=== PATIENT | male | born 1935 | race Caucasian/White ===

== ENCOUNTER → 2018-07-30 | Day surgery (SDC) | payer MEDICARE, OTHER ==
[2018-07-28 16:27] LABS: BASOPHILS % 0.2 % (0.0-1.0); EOSINOPHILS # (AUTO) 0.1 (0.0-0.4); EOSINOPHILS % 1.8 % (0.0-6.0); HEMATOCRIT 36.5 % (38.2-49.6); LYMPHOCYTES # (AUTO) 1.4 (1.0-3.2); LYMPHOCYTES % 24.3 % (18.0-39.1); MEAN CORPUSCULAR HEMOGLOBIN 29.5 pg (28-32); MEAN CORPUSCULAR HGB CONC 32.9 g/dL (31-35); MEAN CORPUSCULAR VOLUME 89.7 fL (81-99); MONOCYTES # (AUTO) 0.8 (0.2-0.8); MONOCYTES % 14.1 % (4.4-11.3); NEUTROPHILS # (AUTO) 3.3 (2.1-6.9); NEUTROPHILS % 59.2 % (38.7-80.0); PLATELET COUNT 177 x10e3/uL (140-360); RED BLOOD COUNT 4.07 x10e6/uL (4.3-5.7); RED CELL DISTRIBUTION WIDTH 13.2 % (11.7-14.4)
[2018-07-28 16:38] LABS: INR 0.93
[2018-07-28 16:44] LABS: ANION GAP 16.9 mmol/L (8-16); CALCIUM 10.5 mg/dL (8.4-10.2); CREATININE, SERUM 2.1 mg/dL (0.72-1.25); POTASSIUM 4.9 mmol/L (3.5-5.1)
--- NOTE | 2018-07-28 16:59 | Diagnostic Imaging Report ---
EXAMINATION: PA and lateral views of the chest. COMPARISON: None CLINICAL HISTORY: Preoperative study for urological procedure DISCUSSION: Lines/tubes: None. Lungs: The lungs are well inflated and clear. There is no evidence of pneumonia or pulmonary edema. Pleura: There is no pleural effusion or pneumothorax. Heart and mediastinum: Atherosclerotic calcification of the thoracic aorta. Otherwise normal cardiomediastinal contour. Bones and soft tissues: No acute bony abnormalities. Degenerative changes in the thoracic spine IMPRESSION: No acute cardiopulmonary abnormalities. Signed by: Dr. Mina Elizabeth M.D. on 07/28/2018 4:56 PM
[~2018-07-30] MED LIST: ACETAMINOPHEN 1000 MG/100 ML IV ONE; CEFTRIAXONE SOD 1 GM/NS 50 ML 50 ML IV ONE; COLESTID1 G PO; FENTANYL CITRATE/PF 100MCG/2 ML INJ ONE; GABAPENTIN300 MG PO; GLYCOPYRROLATE INJ 1MG/ 5 ML SYR ONE; IOPAMIDOL 610MG/1ML 300 MG/ML VIAL IV ONE; LEVOXYL175 MCG PO; LIDOCAINE HCL 2% LOCAL INJ 5 ML SDV VIAL INJ ONE; MORPHINE SULFATE INJ 4 MG/ML INJ 1ML ONE; NIFEDIPINE ER30 M1 PO; NORCO 10-325 T1 EACH; ONDANSETRON HCL INJ 2MG/ML 2ML 2 MG/ML VIAL ONE; PRAVASTATIN SOD20 MG PO; PROPOFOL IV EMULSION 10 MG/ML 20 ML VIAL ONE; SEVOFLURANE INHAL SOLN 250 ML PEN BTL ONE; eliquis PO
--- OUTSIDE RECORDS SUMMARY | 2018-07-30 09:08 | XMS REPORT | Clinical Summary ---
Author Author [facility] Organization [facility] Address Unknown Phone Unavailable Care Team Providers Care Neonatal Intensive Care Unit Nurse Name Role Phone Hosea Cai MD PCP Allergies Comments Active Allergy Reactions Severity Noted Date Pt states that he becomes angry and hurts all over Atorvastatin Other (See 09/09/2017 Comments) Medications End Date Status Medication Sig Dispensed Refills Start Date Active atenolol (TENORMIN) 25 MG 0 tablet 6 Active colestipol (COLESTID) 1 Take 2 g by 3 gram tablet mouth once 7 daily. Active ELIQUIS 5 mg tablet 0 7 Active furosemide (LASIX) 40 mg Take 40 mg by 3 tablet mouth once 6 daily. Active gabapentin (NEURONTIN) Take 1,200 mg 0 600 mg tablet by mouth 3 7 (three) times a day. Active HYDROcodone-acetaminophen TAKE 1 TABLET 0 (NORCO) 10-325 mg per BY MOUTH 4 7 tablet TIMES A DAY NEEDED Active hydroCHLOROthiazide Take 25 mg by 3 (HYDRODIURIL) 25 MG mouth once 7 tablet daily. Active levothyroxine (SYNTHROID, 0 LEVOXYL) 150 mcg tablet 7 Active losartan (COZAAR) 100 MG Take 100 mg 3 tablet by mouth once 6 daily. Active NIFEdipine CC (ADALAT CC) 0 30 MG 24 hr tablet 6 Active omeprazole (PriLOSEC) 40 0 MG capsule 7 Active ranitidine (ZANTAC) 150 Take 150 mg 1 MG tablet by mouth once 7 daily. Active tamsulosin (FLOMAX) 0.4 0 mg capsule,extended 7 release 24hr Active cyanocobalamin 1,000 Inject 1,000 0 mcg/mL injection mcg into the shoulder, thigh, or buttocks once. Active coenzyme Q10 (CO Q-10) Take 100 mg 0 100 mg capsule by mouth daily. Active magnesium 200 mg tablet Take by 0 mouth. Active niacin 500 MG tablet Take 500 mg 0 by mouth daily with breakfast. Active pravastatin (PRAVACHOL) Take 20 mg by 0 20 MG tablet mouth nightly. Active fluticasone (FLONASE) 50 inhale 2 0 mcg/actuation nasal spray sprays (100 8 mcg) in each nostril by intranasal route once daily Active levothyroxine (SYNTHROID, TAKE 1 TABLET 0 LEVOXYL) 175 mcg tablet BY MOUTH IN 8 THE MORNING ON AN EMPTY STOMACH ON SATURDAY AND SATURDAY Active moxifloxacin (VIGAMOX) START 2 DAYS 0 0.5 % ophthalmic solution BEFORE 8 SURGERY,1 DROP BY 4 TIMES A DAY FOR 10 DAYS IN SURGERY EYE ONLY Active oxyCODone-acetaminophen Take 1 tablet 0 (PERCOCET) 10-325 mg per by mouth 4 9 tablet (four) times a day. 02/11/2018 Discontinued CALCIUM CARBONATE/VITAMIN Take by 0 D3 (CALCIUM WITH VITAMIN mouth. D ORAL) 02/11/2018 Discontinued eszopiclone (LUNESTA) 3 TAKE 1 TABLET 0 mg tablet IMMEDIATELY 8 BEFORE BEDTIME ONCE A DAY FOR 1 DAY 02/05/2018 Discontinued oxyCODone-acetaminophen Take 1 tablet 0 (PERCOCET) 10-325 mg per by mouth 4 8 tablet (four) times a day. 02/05/2018 Discontinued acetaZOLAMIDE (DIAMOX) TAKE 1CAP BY 0 500 mg capsule ORAL ROUTE 8 EVERY DAY FOR 1 DAY AT 7AM THE DAY AFTER SURGERY. 02/05/2018 Discontinued prednisoLONE acetate INSTILL 1 0 (PRED FORTE) 1 % DROP IN SX 8 ophthalmic suspension EYE 4 X A DAY FOR 1ST WEEK, DECREASE BY 1 DROP EACH WEEK FOR A TOTAL OF 4 WEEKS 02/05/2018 Discontinued keTOROlac (ACULAR) 0.5 % INSTILL ONE 1 ophthalmic solution DROP INTO THE 8 AFFECTED EYE 4 TIMES PER DAY 02/05/2018 Discontinued methylPREDNISolone TAKE 6 0 (MEDROL DOSEPAK) 4 mg TABLETS ON 8 tablet DAY 1 DIRECTED ON PACKAGE AND DECREASE BY 1 TAB EACH DAY FOR A TOTAL OF 6 DAYS 04/17/2018 Discontinued atenolol (TENORMIN) 25 MG 1 tablet. 0 tablet 04/08/2018 diazePAM (VALIUM) 2 MG Take 1 tablet 1 tablet 0 tablet (2 mg total) 9 by mouth every 6 (six) hours as needed for anxiety for up to 1 day. Active Problems Problem Noted Date Nuclear sclerotic cataract of right eye 02/11/2018 Acute pain of left knee 06/15/2016 Resolved Problems Problem Noted Date Resolved Date Nuclear sclerotic cataract of left eye 01/21/2018 02/11/2018 Encounters Care Team Description Date Type Specialty Tomi Jose MD Enlarged prostate with urinary obstruction (Primary Dx) 07/07/2018 Transcribe Access Orders Dl Quiñones MD Lumbar herniated disc 04/17/2018 Hospital Radiology Encounter Grazyna Mcgraw 04/15/2018 Telephone Radiology Dl Quiñones MD Low back pain, unspecified back pain laterality, unspecified chronicity, with sciatica presence unspecified (Primary Dx); Elevated creatine kinase 04/09/2018 Office Visit Orthopedic Surgery Dl Quiñones MD Lumbar herniated disc (Primary Dx) 04/09/2018 Telephone Orthopedic Surgery Dl Quiñones MD Low back pain, unspecified back pain laterality, unspecified chronicity, with sciatica presence unspecified 04/08/2018 Hospital Radiology Encounter Ella Holly MA 04/07/2018 Telephone Orthopedic Surgery Dl Quiñones MD Low back pain, unspecified back pain laterality, unspecified chronicity, with sciatica presence unspecified (Primary Dx) 04/02/2018 Office Visit Orthopedic Surgery Grazyna Martinez MD 02/11/2018 Anesthesia General Surgery Event Aristides Park MD PHACOEMULSIFICATION, CATARACT, WITH IOL IMPLANTATION 02/11/2018 Surgery General Surgery Aristides Park MD Nuclear sclerotic cataract of right eye (Primary Dx) 02/11/2018 Hospital General Surgery Encounter Grazyna Martinez MD 01/21/2018 Anesthesia General Surgery Event Aristides Park MD PHACOEMULSIFICATION, CATARACT, WITH IOL IMPLANTATION 01/21/2018 Surgery General Surgery Aristides Park MD Nuclear sclerotic cataract of left eye (Primary Dx) 01/21/2018 Hospital General Surgery Encounter Daquan Yanez MD Tear of left rotator cuff, unspecified tear extent (Primary Dx) 12/13/2017 Office Visit Orthopedic Surgery Daquan Yanez MD Tear of left rotator cuff, unspecified tear extent (Primary Dx) 11/13/2017 Office Visit Orthopedic Surgery Silver Zepeda MD Chronic left shoulder pain (Primary Dx); Tear of left rotator cuff, unspecified tear extent; Shoulder injury, subsequent encounter; Glenohumeral arthritis, left 09/09/2017 Office Visit Orthopedic Surgery Silver Zepeda MD Tear of left rotator cuff, unspecified tear extent 08/28/2017 Hospital Radiology Encounter Silver Zepeda MD Chronic left shoulder pain (Primary Dx); Tear of left rotator cuff, unspecified tear extent; Shoulder injury, initial encounter 08/26/2017 Office Visit Orthopedic Surgery after 07/29/2017 Immunizations Name Dates Previously Given Next Due Pneumococcal Conjugate 10/09/2016 13-Valent Pneumococcal 10/17/2017 Polysaccharide Family History Relation Name Status Comments Father Mother Social History Date Tobacco Use Types Packs/Day Years Used Quit: 1987 Former Smoker Cigarettes 0.5 20 Smokeless Tobacco: Never Used Tobacco Cessation: Counseling Given: No Comments: quit smoking years ago Alcohol Use Drinks/Week oz/Week Comments No Sex Assigned at Date Recorded Not on file Industry Job Start Date Occupation Not on file Not on file Not on file Travel End Travel History Travel Start No recent travel history available. Last Filed Vital Signs Time Taken Vital Sign Reading 04/17/2018 11:42 AM [employer]ODUCTION STAFF WORKER Blood Pressure 153/67 04/17/2018 11:42 AM PRODUCTION STAFF WORKER Pulse 72 02/11/2018 9:52 AM PRODUCTION STAFF WORKER Temperature 36.1 C (97 F) 04/17/2018 11:42 AM PRODUCTION STAFF WORKER Respiratory Rate 18 04/17/2018 11:42 AM PRODUCTION STAFF WORKER Oxygen Saturation 98% - Inhaled Oxygen - Concentration 04/17/2018 9:08 AM PRODUCTION STAFF WORKER Weight 99.8 kg (220 lb) 04/17/2018 9:08 AM PRODUCTION STAFF WORKER Height 177.8 cm (5' 10") 04/17/2018 9:08 AM PRODUCTION STAFF WORKER Body Mass Index 31.57 Plan of Treatment Health Maintenance Due Date Last Done Comments SHINGLES VACCINES (#1) 1984 INFLUENZA VACCINE 10/16/2018 65+ PNEUMOCOCCAL VACCINE Completed 10/17/2017, 10/09/2016 PNEUMOCOCCAL Completed 10/17/2017 POLYSACCHARIDE VACCINE AGE 65 AND OVER Implants Device Identifier Shelf Expiration Date Model / Serial / Lot Implanted Type Area Manufactur er 07/20/2022 [id number] / [id number] / [id number] 20.5 Diopter, [employer] Toric Intraocula Left: Eye CONRAD Iol, Model [id number], Multifocal, r Lens MEDICAL Style C, Tri-Fix Haptics Offset (IOL) OPTICS From Optic, 1-Piece Lens (FORMERLY Implanted: Qty: 1 on 01/21/2018 by Vivian RODRIGUEZ Asad Syed, MD [employer]) 09/11/2021 [id number] / [id number] / [id number] 22.0 Diopter, [employer] Symfony Toric Intraocula Right: Eye CONRAD Iol, Model [id number], Multifocal, r Lens MEDICAL Style C, Tri-Fix Haptics Offset (IOL) OPTICS From Optic, 1-Piece Lens (FORMERLY Implanted: Qty: 1 on 02/11/2018 by Vivian RODRIGUEZ Asad Syed, MD [employer]) Procedures Comments Procedure Name Priority Date/Time Associated Diagnosis US PROSTATE Routine 07/15/2018 Enlarged prostate with 6:03 PM CDT urinary obstruction IR EPIDURAL STEROID INJ Routine 04/17/2018 Lumbar herniated disc TRANSFORAM LUMBAR LEFT 10:55 AM PRODUCTION STAFF WORKER (NERVE ROOT BLOCK) ESTIMATED GFR Routine 04/17/2018 8:50 AM PRODUCTION STAFF WORKER PARTIAL THROMBOPLASTIN Routine 04/17/2018 TIME (PTT) 8:50 AM PRODUCTION STAFF WORKER PROTHROMBIN TIME WITH INR Routine 04/17/2018 8:50 AM PRODUCTION STAFF WORKER COMPREHENSIVE METABOLIC Routine 04/17/2018 PANEL 8:50 AM PRODUCTION STAFF WORKER HC COMPLETE BLD COUNT Routine 04/17/2018 W/AUTO DIFF 8:50 AM PRODUCTION STAFF WORKER ESTIMATED GFR Routine 04/09/2018 12:27 PM PRODUCTION STAFF WORKER COMPREHENSIVE METABOLIC Routine 04/09/2018 Elevated creatine kinase PANEL 12:27 PM PRODUCTION STAFF WORKER MRI LUMBAR SPINE WO Routine 04/08/2018 Low back pain, CONTRAST 12:29 PM PRODUCTION STAFF WORKER unspecified back pain laterality, unspecified chronicity, with sciatica presence unspecified XR LUMBAR SPINE COMPLETE Routine 04/02/2018 Low back pain, 4+ VW 2:16 PM PRODUCTION STAFF WORKER unspecified back pain laterality, unspecified chronicity, with sciatica presence unspecified PHACOEMULSIFICATION, 02/11/2018 Age-related nuclear CATARACT, WITH IOL 8:30 AM PRODUCTION STAFF WORKER cataract, right IMPLANTATION Special Needs [id number] +22.00IRIS HOOKS PHACOEMULSIFICATION, 01/21/2018 Age-related nuclear CATARACT, WITH IOL 12:35 PM PRODUCTION STAFF WORKER cataract of left eye IMPLANTATION Special Needs [id number] +20.50IRIS HOOKS POC GLUCOSE Routine 01/21/2018 12:32 PM PRODUCTION STAFF WORKER OK ARTHROCENTESIS Routine 12/13/2017 Tear of left rotator ASPIR&/INJ MAJOR JT/BURSA 1:30 PM CDT cuff, unspecified tear W/O US extent OK ARTHROCENTESIS Routine 09/09/2017 Tear of left rotator ASPIR&/INJ MAJOR JT/BURSA 8:45 AM CDT cuff, unspecified tear W/O US extent Glenohumeral arthritis, left MRI SHOULDER WO CONTRAST Routine 08/28/2017 Tear of left rotator LEFT 11:27 AM CDT cuff, unspecified tear extent XR SHOULDER 2+ VW LEFT Routine 08/26/2017 Chronic left shoulder 1:23 PM CDT pain OK ARTHROCENTESIS Routine 08/26/2017 Tear of left rotator ASPIR&/INJ MAJOR JT/BURSA 1:15 PM CDT cuff, unspecified tear W/O US extent after 07/29/2017 Results * US Prostate (07/15/2018 6:03 PM CDT) Narrative Performed At EXAMINATION:US PROSTATE [facility] CLINICAL HISTORY:N40.1 Benign prostatic hyperplasia with lower urinary tract symptoms, N13.8 Other obstructive and reflux uropathy, ENLARGED PROSTATE COMPARISON:None. Multiple transrectal sonographic images of the prostate gland are obtained using real-time ultrasonography. FINDINGS: The prostate gland measures 4.6 x 4.0 x 2.4 cm. cm. The prostate volume is 22.7 cc. The prostate gland is heterogeneous. There is a 1.1 cm cyst present. The seminal vesicles are unremarkable. IMPRESSION: 1. The prostate gland is enlarged. 2. The prostate gland is heterogeneous. 3. There is a 1.1 cm cyst present. Procedure Note Interface, Radiology Results Incoming - 07/15/2018 6:09 PM CDT EXAMINATION: US PROSTATE CLINICAL HISTORY: N40.1 Benign prostatic hyperplasia with lower urinary tract symptoms, N13.8 Other obstructive and reflux uropathy, ENLARGED PROSTATE COMPARISON: None. Multiple transrectal sonographic images of the prostate gland are obtained using real-time ultrasonography. FINDINGS: The prostate gland measures 4.6 x 4.0 x 2.4 cm. cm. The prostate volume is 22.7 cc. The prostate gland is heterogeneous. There is a 1.1 cm cyst present. The seminal vesicles are unremarkable. IMPRESSION: 1. The prostate gland is enlarged. 2. The prostate gland is heterogeneous. 3. There is a 1.1 cm cyst present. 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 Malone. CONSENT: The risks and benefits of the procedure were fully explained to the patient in detail and all the patient's questions were answered. The patient agreed to proceed with the procedure and signed an informed consent. TECHNIQUE: The patient was brought to the angio suite and placed on the fluoroscopy table in prone position. The patient's lumbar region was prepped and draped in standard sterile fashion. Sedation was administered by intravenous injection of adequate amounts of Versed and fentanyl. Continuous monitoring and recording of the patients vital signs was carried out under my supervision during the procedure and subsequently in the recovery room until discharged. Under fluoroscopy, theleft [id number] foramen was localized. The skin over that region was infiltrated with 1% lidocaine. Under real-time fluoroscopic guidance, a 25 gauge spinal needle was advanced percutaneously to theleft [id number] foramen. Then, 2 cc of nonionic contrast agent was slowly injected, which demonstrated radiculogram of theleft S1. Subsequently 3cc of Marcaine 0.75% and 6 milligrams of Celestone was slowly injected into this region with intermittent pause to assess for any adverse effects of injection. The needle was then withdrawn and hemostasis was achieved with adequate pressure. The patient tolerated the procedure well without any immediate complications. TOTAL FLUOROSCOPY TIME: 7 minutes. Total fluoroscopic exposure images was2 images. Total radiation exposure was 68 mGy. Total sedation time was 7minutes. IMPRESSION: Successful uncomplicated fluoroscopic guided transforaminal epidural steroid injection at left S1. [facility]-[id number] Procedure Note Hm Interface, Radiology Results Incoming - 04/17/2018 11:50 AM PRODUCTION STAFF WORKER EXAMINATION: IR EPIDURAL STEROID INJ TRANSFORAM LUMBAR LEFT (NERVE ROOT BLOCK) CLINICAL HISTORY: M51.26 Other intervertebral disc displacement lumbar region, herniated lumbar disc OPERATORS: Dr. Malone. CONSENT: The risks and benefits of the procedure were fully explained to the patient in detail and all the patient's questions were answered. The patient agreed to proceed with the procedure and signed an informed consent. TECHNIQUE: The patient was brought to the angio suite and placed on the fluoroscopy table in prone position. The patient's lumbar region was prepped and draped in standard sterile fashion. Sedation was administered by intravenous injection of adequate amounts of Versed and fentanyl. Continuous monitoring and recording of the patients vital signs was carried out under my supervision during the procedure and subsequently in the recovery room until discharged. Under fluoroscopy, the left S1 neural foramen was localized. The skin over that region was infiltrated with 1% lidocaine. Under real-time fluoroscopic guidance, a 25 gauge spinal needle was advanced percutaneously to the left S1 neural foramen. Then, 2 cc of nonionic contrast agent was slowly injected, which demonstrated radiculogram of the left S1. Subsequently 3cc of Marcaine 0.75% and 6 milligrams of Celestone was slowly injected into this region with intermittent pause to assess for any adverse effects of injection. The needle was then withdrawn and hemostasis was achieved with adequate pressure. The patient tolerated the procedure well without any immediate complications. TOTAL FLUOROSCOPY TIME: 7 minutes. Total fluoroscopic exposure images was2 images. Total radiation exposure was 68 mGy. Total sedation time was 7minutes. IMPRESSION: Successful uncomplicated fluoroscopic guided transforaminal epidural steroid injection at left S1. [facility]-[id number] Performing Organization Address City/[facility] Phone Number [facility] [address] [place] [address] * Estimated GFR (04/17/2018 8:50 AM PRODUCTION STAFF WORKER) Only the most recent of 2 results within the time period is included. Estimated GFR 32 (A) mL/min/1.73 m2 [facility] Comment: [facility] CatergoryUnitsInte rpretation G1 >=90 Normal or high G2 60-89Mildly decreased [id number] Mildly to moderately decreased [id number] Moderately to severely decreased G4 15-29Severely decreased G5 <15Kidney failure The eGFR was calculated using the Chronic Kidney Disease Epidemiology Collaboration (CKD-EPI) equation. Interpretation is based on recommendations of the National Kidney Foundation-Kidney Disease Outcomes Quality Initiative (NKF-KDOQI) published in 2014. Specimen Plasma specimen Performing Organization Address [facility] Phone Number [facility] DEPARTMENT [address] [place] [address] PATHOLOGY AND GENOMIC MEDICINE [facility] [address] [place], [place] [id number] [place] [address] * Partial thromboplastin time, activated (04/17/2018 8:50 AM PRODUCTION STAFF WORKER) PTT 28.8 23.0 - 36.0 sec ARNULFO GREWAL Comment: [facility] PTT therapeutic range for unfractionated heparin is 61.0-112.0 seconds which corresponds to Anti-Xa 0.3-0.7 U/ml. Note:Change in Panic Value The PTT Panic Value is changing from 110 sec. to 100 sec. due to new instrumentation and reagents. Correlation studies have been performed to validate this result. Specimen Blood Performing Organization Address City/[facility]/Zipcode Phone Number [facility] [address] [place] [phone] PATHOLOGY AND [facility] [address] * Prothrombin time with INR (04/17/2018 8:50 AM PRODUCTION STAFF WORKER) Prothrombin time 12.2 11.5 - 14.5 sec [facility] INR 0.93 [facility] Comment: [facility] For patients on anticoagulant therapy, reference ranges below: Indication: INR Value Treatment of Venous Thrombosis, 2.0-3.0 pulmonary emboli, or prophylaxis of a venous thrombosis, or systemic emboli. High dose, high risk patients 3.0-4.5 with mechanical valves. NOTE:INR values over 3.0 are sometimes associated with gastrointestinal hemorrhage, especially values over 4.0. Specimen Blood Performing Organization Address [facility]/Zipcode Phone Number [facility] [address] [place] [address] PATHOLOGY AND [facility] [address] * CBC with platelet and differential (04/17/2018 8:50 AM PRODUCTION STAFF WORKER) WBC 5.4 4.2 - 11.0 k/uL [facility] RBC 4.37 4.04 - 5.86 m/uL [facility] HGB 12.4 (L) 13.0 - 17.3 g/dL [facility] HCT 39.6 34.0 - 45.0 % [facility] MCV 90.6 80.0 - 98.0 fL [facility] MCH 28.4 27.0 - 34.0 pg [facility] MCHC 31.3 (L) 31.5 - 36.5 g/dL [facility] RDW - SD 43.0 37.0 - 51.0 fL [facility] MPV 10.3 7.4 - 10.4 fL [facility] Platelet count 192 150 - 400 k/uL [facility] Nucleated RBC 0.00 /100 WBC [facility] Neutrophils 57.7 36.0 - 66.0 % [facility] Lymphocytes 21.8 (L) 24.0 - 44.0 % [facility] Monocytes 13.8 (H) 0.0 - 6.0 % [facility] Eosinophils 4.9 0.0 - 6.0 % [facility] Basophils 0.7 0.0 - 1.2 % [facility] Immature granulocytes 1.1 (H) 0.0 - 1.0 % [facility] Specimen Blood Performing Organization Address City/State/Zipcode Phone Number [facility] OF [address] [facility] [address] [place] [phone] PATHOLOGY AND GENOMIC MEDICINE [place] [id number] [facility] [address] * Comprehensive metabolic panel (04/17/2018 8:50 AM PRODUCTION STAFF WORKER) Only the most recent of 2 results within the time period is included. Sodium 139 135 - 150 mEq/L [facility] Potassium 4.6 3.5 - 5.0 mEq/L [facility] Chloride 100 98 - 112 mEq/L [facility] CO2 27 24 - 31 mmol/L [facility] Anion gap 12@ANIO 7 - 15 mEq/L [facility] BUN 32 (H) 7 - 18 mg/dL [facility] Creatinine 1.90 (H) 0.70 - 1.20 mg/dL [facility] Glucose 110 (H) 65 - 100 mg/dL [facility] Calcium 9.7 8.8 - 10.2 mg/dL [facility] Protein 7.2 6.3 - 8.3 g/dL [facility] Albumin 3.9 3.5 - 5.0 g/dL [facility] A/G ratio 1.2 0.7 - 3.8 [facility] Alkaline phosphatase 68 0 - 129 U/L [facility] AST 27 10 - 50 U/L [facility] ALT 19 5 - 50 U/L [facility] Total bilirubin 0.3 0.2 - 1.2 mg/dL [facility] Specimen Plasma specimen Performing Organization Address City/State/Zipcode Phone Number [facility] DEPARTMENT OF [address] [place] [address] PATHOLOGY AND GENOMIC MEDICINE [facility] [address] [place], [place] [phone] [place] [address] * MRI Lumbar Spine Wo Contrast (04/08/2018 12:29 PM PRODUCTION STAFF WORKER) Narrative Performed At EXAM:MRI LUMBAR SPINE WO CONTRAST [facility] COMPARISON: None. CLINICAL HISTORY: M54.5 Low back pain, low back pain TECHNIQUE: Multiplanar multisequence examination was performedWithout contrast. FINDINGS: Sagittal images demonstrate degenerative disc disease with disc space narrowing at L4-5 and to a slightly lesser extent at L5-S1. There is no evidence of spondylolisthesis or compression fracture. Axial images demonstrate the following: L5-S1: There appears to be a small left hemilaminectomy. There is perineural scarring on the left side of the spinal canal obliterating the epidural fat planes. There is a broad-based left foraminal protrusion compressing the left L5 nerve root within the foramen. There is no definite S1 nerve root compression. There is a residual small central bulge. L4-5: There is annular bulging and spondylosis with bilateral foraminal stenosis. There is a small left hemilaminectomy without significant central canal stenosis. There is mild intrathecal nerve root clumping suggestive of postoperative arachnoiditis. L3-4: There is a small left hemilaminectomy. There is asymmetric annular bulging and spondylosis with foraminal stenosis more severe on the right. L2-3: There is annular bulging and spondylosis with bilateral foraminal stenosis. L1-2: There is mild annular bulging and spondylosis without significant stenosis. IMPRESSION: Chronic postoperative changes on the left at L3-4 through L5-S1. Left foraminal broad-based protrusion at L5-S1 with compression of the left L5 nerve root. 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 Spondylotic changes at L2-3 and L1-2 without significant stenosis. [facility]-[id number] Procedure Note Hm Interface, Radiology Results - 04/08/2018 12:42 PM PRODUCTION STAFF WORKER EXAM: MRI LUMBAR SPINE WO CONTRAST COMPARISON: None. CLINICAL HISTORY: M54.5 Low back pain, low back pain TECHNIQUE: Multiplanar multisequence examination was performed Without contrast. FINDINGS: Sagittal images demonstrate degenerative disc disease with disc space narrowing at L4-5 and to a slightly lesser extent at L5-S1. There is no evidence of spondylolisthesis or compression fracture. Axial images demonstrate the following: L5-S1: There appears to be a small left hemilaminectomy. There is perineural scarring on the left side of the spinal canal obliterating the epidural fat planes. There is a broad-based left foraminal protrusion compressing the left L5 nerve root within the foramen. There is no definite S1 nerve root compression. There is a residual small central bulge. L4-5: There is annular bulging and spondylosis with bilateral foraminal stenosis. There is a small left hemilaminectomy without significant central canal stenosis. There is mild intrathecal nerve root clumping suggestive of postoperative arachnoiditis. L3-4: There is a small left hemilaminectomy. There is asymmetric annular bulging and spondylosis with foraminal stenosis more severe on the right. L2-3: There is annular bulging and spondylosis with bilateral foraminal stenosis. L1-2: There is mild annular bulging and spondylosis without significant stenosis. IMPRESSION: Chronic postoperative changes on the left at L3-4 through L5-S1. Left foraminal broad-based protrusion at L5-S1 with compression of the left L5 nerve root. 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 Spondylotic changes at L2-3 and L1-2 without significant stenosis. [facility]-[id number] Performing Organization Address City/State/Zipcode Phone Number [facility] [address] [facility] [place] [address] * XR Lumbar Spine Complete 4+ Vw (04/02/2018 2:16 PM PRODUCTION STAFF WORKER) Narrative Performed At [facility] Xray Lumbar Spine: AP/Lateral/Flexion/Extension Radiographs of the Lumbar Spine were obtained today and evaluated by me personally. The overall alignment of the lumbar spine is lordotic and in anatomical alignment. There is no evidence of dynamic instability noted of flexion/extension films. There is evidence of disc degeneration at the level of L5/S1. 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 Performing Organization Address City/State/Zipcode Phone Number [facility] [address] [place] [address] * POC glucose (01/21/2018 12:32 PM PRODUCTION STAFF WORKER) POC glucose 101 (H) 65 - 100 mg/dL [facility] DEPARTMENT OF Comment: PATHOLOGY AND Meter ID: [id number] GENOMIC MEDICINE Wind Commissioning Technician: Vero Olivas Performing Organization Address City/State/Zipcode Phone Number [facility] DEPARTMENT OF [address] [place] [address] PATHOLOGY AND GENOMIC MEDICINE * Large Joint Arthrocentesis (12/13/2017 1:30 PM CDT) Narrative Performed At Daquan Yanez MD 12/13/20176:48 PM Large Joint Arthrocentesis Consent given by: patient Site marked: site marked Timeout: Immediately prior to procedure a time out was called to verify the correct patient, procedure, equipment, client support coordinator and site/side marked as required Supporting Documentation Indications: pain Procedure Details Preparation: Patient was prepped and draped in the usual sterile fashion Ultrasound guided: no Platelet Rich Plasma Used: no PRP Used Location: shoulder - L glenohumeral Left side: Needle size: 22 G Approach: posterior Left shoulder medications administered: 40 mg methylPREDNISolone acetate 40 mg/mL; 2 mL lidocaine 10 mg/mL (1 %) Patient tolerance: patient tolerated the procedure well with no immediate complications * Large Joint Arthrocentesis (09/09/2017 8:45 AM CDT) Narrative Performed At Silver Zepeda MD 09/09/20179:34 AM Large Joint Arthrocentesis Consent given by: patient Supporting Documentation Indications: pain Procedure Details Location: shoulder - L glenohumeral Left side: Needle size: 22 G Approach: posterior Left shoulder medications administered: 3 mL lidocaine 10 mg/mL (1 %); 1 mL triamcinolone acetonide 40 mg/mL Patient tolerance: patient tolerated the procedure well with no immediate complications * MRI Shoulder Wo Contrast Left (08/28/2017 11:27 AM CDT) Narrative Performed At [facility] PROCEDURE:MRI SHOULDER WO CONTRAST LEFT CLINICAL HISTORY: M75.102 Unspecified rotator cuff tear or rupture of left shouldernot specified as traumatic, BONE PAINSHOULDER COMPARISON:None. TECHNIQUE: ANATOMY IMAGED: Left shoulder Multiplanar T1 and T2-weighted images were performed without and with fat suppression. Images were acquired on a 1.5 Nelly Siemens magnet system. FINDINGS: 1. No significant shoulder joint effusion is present. The liver, fluid is seen in the subacromial subdeltoid space. 2. Impingement on the coracoacromial arch is demonstrated by hypertrophic changes at the right acromioclavicular joint. A type1 acromion is present.No lateral downsloping acromion is seen. 3. Components of the rotator cuff demonstrate a full-thickness rotator cuff tear involving the supraspinatus tendon, infraspinatus tendon, and teres minor with presence of a gap and retraction. The gap measures approximately 2-3.4 cm on the oblique coronal with retraction of all the tendons.. The subscapularis tendon is normal. 4. The superior and middle glenohumeral ligaments demonstrate thickening of the middle glenohumeral ligament. No abnormality of the superior glenohumeral ligament is seen.. The anterior and posterior components of the inferior glenohumeral ligament are unremarkable. 5. A SLAP lesion is present. 6. Fraying and thickening is noted at the biceps labral complex the possibility of a low-grade strain in this area is not excluded. Attenuation of the biceps tendon caliber is noted in the craniad aspect of the bicipital groove. No significant peritendinous fluid signal is noted. No abnormal intrasubstance signal of the bicipital tendon is seen. 7. Degenerative changes are seen in the region of the anatomic neck and greater tuberosity of the left humerus. 8. Degenerative hypertrophic changes are noted in the left acromial clavicular joint with joint space narrowing. The glenohumeral joint demonstrates cartilage loss with slight posterior subluxation of the humeral head relative to the glenoid fossa. 9. 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 IMPRESSION: Abnormal study. Complete rotator cuff tear with gap and retraction. SLAP tear. Partial tear with attenuation at the biceps labral complex and long head of the biceps proximal to the biceps labral junction. 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 [facility]-[id number] . Procedure Note Interface, Radiology Results - 08/28/2017 12:05 PM CDT PROCEDURE: MRI SHOULDER WO CONTRAST LEFT CLINICAL HISTORY: M75.102 Unspecified rotator cuff tear or rupture of left shoulder not specified as traumatic, BONE PAIN SHOULDER COMPARISON: None. TECHNIQUE: ANATOMY IMAGED: Left shoulder Multiplanar T1 and T2-weighted images were performed without and with fat suppression. Images were acquired on a 1.5 Nelly Siemens magnet system. FINDINGS: 1. No significant shoulder joint effusion is present. The liver, fluid is seen in the subacromial subdeltoid space. 2. Impingement on the coracoacromial arch is demonstrated by hypertrophic changes at the right acromioclavicular joint. A type 1 acromion is present. No lateral downsloping acromion is seen. 3. Components of the rotator cuff demonstrate a full-thickness rotator cuff tear involving the supraspinatus tendon, infraspinatus tendon, and teres minor with presence of a gap and retraction. The gap measures approximately 2-3.4 cm on the oblique coronal with retraction of all the tendons.. The subscapularis tendon is normal. 4. The superior and middle glenohumeral ligaments demonstrate thickening of the middle glenohumeral ligament. No abnormality of the superior glenohumeral ligament is seen.. The anterior and posterior components of the inferior glenohumeral ligament are unremarkable. 5. A SLAP lesion is present. 6. Fraying and thickening is noted at the biceps labral complex the possibility of a low-grade strain in this area is not excluded. Attenuation of the biceps tendon caliber is noted in the craniad aspect of the bicipital groove. No significant peritendinous fluid signal is noted. No abnormal intrasubstance signal of the bicipital tendon is seen. 7. Degenerative changes are seen in the region of the anatomic neck and greater tuberosity of the left humerus. 8. Degenerative hypertrophic changes are noted in the left acromial clavicular joint with joint space narrowing. The glenohumeral joint demonstrates cartilage loss with slight posterior subluxation of the humeral head relative to the glenoid fossa. 9. 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 IMPRESSION: Abnormal study. Complete rotator cuff tear with gap and retraction. SLAP tear. Partial tear with attenuation at the biceps labral complex and long head of the biceps proximal to the biceps labral junction. 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 [id number] . Performing Organization Address City/[facility] Phone Number [facility] [address] [place] [address] * XR Shoulder 2+ Vw Left (08/26/2017 1:23 PM CDT) Narrative Performed At [email or web address] views of the left shoulder shows patient has no fractures or dislocations noted, minimal arthritic changes present by the acromial clavicular joint. Performing Organization Address [facility] Phone Number [facility] [address] [place] [address] * Large Joint Arthrocentesis (08/26/2017 1:15 PM CDT) Narrative Performed At Silver Zepeda MD 08/26/20171:49 PM Large Joint Arthrocentesis Consent given by: patient Timeout: Immediately prior to procedure a time out was called to verify the correct patient, procedure, equipment, client support coordinator and site/side marked as required Supporting Documentation Indications: pain Procedure Details Location: shoulder - L subacromial bursa Left side: Needle size: 22 G Approach: posterior Left shoulder medications administered: 3 mL lidocaine 10 mg/mL (1 %); 1 mL triamcinolone acetonide 40 mg/mL Patient tolerance: patient tolerated the procedure well with no immediate complications after 07/29/2017 Insurance Payer Benefit Subscriber ID Type Phone Address Plan / Group MEDICARE MEDICARE xxxxxxxxxx Medicare [place], [place] PART A AND B [employer] xxxxxxxxxx Commercial [employer] [address] (Home) [place] [address] Advance Directives Patient has advance care planning documents on file. For more information, sari e contact: Arnulfo Grewal [address] [place] [address]
--- OUTSIDE RECORDS SUMMARY | 2018-07-30 09:08 | XMS REPORT ---
Author Author [facility] Address Unknown Phone Unavailable Care Team Providers Care Practice Coordinator Name Role Phone Marcos MORALES Unavailable Unavailable Problems This patient has no known problems. Allergies, Adverse Reactions, Alerts This patient has no known allergies or adverse reactions. Medications This patient has no known medications. Results Test Description Test Time Test Comments Text Results Atomic Results Result Comments CHEST 2 VIEWS 2018-07-28 16:55:00 [place] [address] Patient Name: GERRI CHASE MR #: [id number] : 1935 Age/Sex: 83/M Req #: [id number] Adm Physician: Ordered by: RALPH MORALES MD Report #: [id number] Location: OR Room/Bed: Procedure: [id number] DX/CHEST 2 VIEWS Exam Date: Exam Time: REPORT STATUS: Signed EXAMINATION: PA and lateral views of the chest. COMPARISON: None CLINICAL HISTORY: Preoperative study for urological procedure DISCUSSION: Lines/tubes: None. Lungs: The lungs are well inflated and clear. There is no evidence of pneumonia or pulmonary edema. Pleura: There is no pleural effusion or pneumothorax. Heart and mediastinum: Atherosclerotic calcification of the thoracic aorta. Otherwise normal cardiomediastinal contour. Bones and soft tissues: No acute bony abnormalities. Degenerative changes in the thoracic spine IMPRESSION: No acute cardiopulmonary abnormalities. Signed by: Dr. Robbie Cunha M.D. on 07/28/2018 4:56 PM Dictated By: ROBBIE CUNHA MD 55 Transcribed By: MARTHA on 07/28/181655 COPY TO: RALPH MORALES MD
[2018-07-30 14:50] VITALS: BP 159/69
--- NOTE | 2018-07-31 06:22 | Operative Report ---
DATE OF PROCEDURE: 07/30/2018 SURGEON: Tomi Jose MD PREOPERATIVE DIAGNOSES: 1. 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 2. Benign prostatic hyperplasia. POSTOPERATIVE DIAGNOSES: 1. 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 2. Benign prostatic hyperplasia. OPERATION: 1. Circumcision. 2. Cystoscopy. ERP ENGINEER: Baron Callahan MD ANESTHETIC: General. DESCRIPTION OF PROCEDURE: Mr. Wei is an 83-year-old male, who presented with a chief complaint of lower urinary tract obstructive symptoms. Physical exam showed a very large tumor mass of the foreskin measuring about 4 to 5 cm in length all around. This patient was placed on the table in the lithotomy position and was prepped and draped in a sterile manner after satisfactory anesthesia. A #23-Kenyan cystoscope was used and cystourethroscopy was performed and it was noted that the urethra was normal. The prostatic urethra was about 3 cm long, bilobar, and occlusive. Cystoscopy was then performed using both right-angle and Foroblique lens and the bladder mucosa was normal. Both ureteral orifices were seen and were within normal position, configuration efflux. This patient was then placed on the table in the supine position and re-prepped and draped in a sterile manner. A collar incision about 2 mm proximal to the goodrich was done just about the distal margin of the tumor. Another collar incision around the penis was done proximal to the tumor mass, leaving about 2 mm safety margin. The foreskin and the mass of the skin with the tumor was excised. Hemostasis was obtained all through and was very adequate. Attention was now directed to the approximation of the skin and both skin edges were approximated interruptedly using 4-0 Vicryl. Hemostasis was obtained all through and was very adequate. A sterile dressing was applied. The patient tolerated the procedure well and was taken to the recovery room in satisfactory condition. Plans for this patient is to be placed on Augmentin 500 mg 1 three times a day for one week. This patient is already on codeine with Tylenol, so I did not give him any pain medicine. He is to return to the office in one week. Tomi Jose MD MA/MODL /[id number]
== END | disposition home or self-care (01) ==
LOC: OR 08:40
PROVIDERS: ATTEND Specialist
DX: C00-D49 Neoplasms (principal); N40.1 Benign prostatic hyperplasia with lower urinary tract symptoms; I25.10 Atherosclerotic heart disease of native coronary artery without angina pectoris; Z95.5 Presence of coronary angioplasty implant and graft; I10 Essential (primary) hypertension; E11.51 Type 2 diabetes mellitus with diabetic peripheral angiopathy without gangrene; I70.213 Atherosclerosis of native arteries of extremities with intermittent claudication, bilateral legs; E03.9 Hypothyroidism, unspecified; E78.5 Hyperlipidemia, unspecified; Z79.02 Long term (current) use of antithrombotics/antiplatelets; G47.33 Obstructive sleep apnea (adult) (pediatric); Z01.812 Encounter for preprocedural laboratory examination; Z01.818 Encounter for other preprocedural examination
CPT/HCPCS: 36415; 52000; 54161; 71046; 80048; 85025; 85610; 88307; 88342; J0131; J0696; J2001; J2270; J2405; J2704; J3490; 88302